=== PATIENT | female | born 1995 | race Caucasian/White ===

== ENCOUNTER 2024-05-12 14:01 | Emergency (ER) | payer OTHER, SELFPAY ==
--- NOTE | ~2024-05-12 | US_ITS ---
EXAMINATION: US venous doppler LE RT DATE: 05/12/2024 15:25 INDICATION: Right lower extremity swelling with history of blood clots TECHNIQUE: Grayscale ultrasound images without and with compression and Doppler ultrasound images of the right lower extremity veins were obtained. COMPARISON: None. FINDINGS: The visualized portions of right common femoral vein, profunda (deep) femoral vein, femoral vein, pop liteal vein, peroneal veins, posterior tibial veins, and greater saphenous vein outflow are patent. IMPRESSION: 1. No deep venous thrombosis within the right lower extremity, as detailed above. Reviewed, dictated and finalized at location A. IMPRESSION: 1. No deep venous thrombosis within the right lower extremity, as detailed abo ve.
[2024-05-12 14:04] VITALS: BP 126/84; PULSE 81; RESP 16; TEMP 36.8; O2SAT 99
--- OUTSIDE RECORDS SUMMARY | 2024-05-12 15:07 | XMS_ITS | Referral Summary ---
Author Organization [facility] Address [address] [place] [address] Phone Care Team Providers Care Accounts Receivable Specialist Name Role Phone Anita Tian LAWYER PROBATE Primary Care Provider [phone] Allergies No known active allergies Medications butalbital-acet aminophen-caff (Fioricet, Esgic) 50-325-40 mg tablet Take 1 tablet by mouth if needed for headaches. Active acetaZOLAMIDE (Diamox) 250 mg tablet Take 1 tablet (250 mg total) by mouth 2 (two) times a day. 60 tablet 3 1 Active caffeine 200 mg Take 0.5 tablets (100 mg total) by mouth 2 (two) times a day. 30 tablet 1 1 Active Additional Information Patient not taking.Reported on 04/09/2020 topiramate (Topamax) 25 mg tablet Take 1 tablet (25 mg total) by mouth 2 (two) times a day. Goal dose is 75mg in AM and 50mg in PM, follow titration schedule given in clinic 150 tablet 5 1 Active amphetamine-dex troamphetamine XR (Adderall XR) 20 mg 24 hr capsule Take 20 mg by mouth 1 (one) time each day in the morning. Do not crush or chew. Active cyclobenzaprine (Flexeril) 10 mg tablet Take 1 tablet (10 mg total) by mouth 3 (three) times a day if needed for muscle spasms for up to 10 days. 30 tablet 4 Active Social History Tobacco Use Types Packs/Day Years Used Date Smoking Tobacco: Former Smokeless Tobacco: Never Alcohol Use Standard Drinks/Week Comments Yes 0 (1 standard drink = 0.6 oz pur e alcohol) AUDIT-C Answer Date Recorded Q1: How often do you have a drink containing alc ohol? Monthly or less 03/20/2020 Q2: How many drinks containi ng alcohol do you have on a typical day when you are drinking? 1 or 2 03/20/2020 Q3: How often do you have si x or more drinks on one occasion? 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03 02/09/2024 12:41 PM WINDOW SHADE CUTTER Plan of Treatment Not on file Insurance Care Teams Accounts Receivable Specialist Relationship Specialty Start Date End Date Anita Tian NP [address] [place] [address] PCP - General Family Medicine 11/02/21
--- OUTSIDE RECORDS SUMMARY | 2024-05-12 15:07 | XMS_ITS | Clinical Summary ---
Author Organization [facility] Address [address] Attn: Epic Prelude ADT ANDREY BARROSO [address] Care Team Providers Care Pulp Mill Supervisor Name Role Phone Unavailable Primary Care Provider Unavailabl e Allergies No known active allergies Medications ibuprofen (MOTRIN) 600 mg tablet Take by mouth. Active acetaZOLAMIDE (DIAMOX) 250 mg tablet Take 250 mg by mouth 2 times daily. 03/24/2020 Active oxycodone HCl,terephth/asp irin (OXYCODONE VSW-LVZXHEOJT-EP A ORAL) Take 5 mg by mouth. Active acyclovir (ZOVIRAX) 200 mg capsule 05/13/2022 Active amitriptyline (ELAVIL) 10 mg tablet Take 10 mg by mouth daily at bedtime. Active Cepacol Sore Throat, brendan-men, 15-2.6 mg Lozenge 06/09/2022 Active caffeine (VIVARIN) 200 mg tablet Take 100 mg by mouth 2 times daily. 03/28/2020 Active dextroamphetamin e-amphetamine (ADDERALL) 5 mg tablet 06/18/2022 Active levoFLOXacin (LEVAQUIN) 750 mg tablet 05/10/2022 Active omeprazole (PriLOSEC) 20 mg Capsule, Delayed Release(E.C.) 05/13/2022 Activ e ondansetron (ZOFRAN ODT) 4 mg Tablet, Rapid Dissolve 05/10/2022 Active SUMAtriptan (IMITREX) 25 mg tablet Take 25 mg by mouth. Active topiramate (TOPAMAX) 25 mg tablet Take 25 mg by mouth 2 times daily. 04/09/2020 Active valACYclovir (VALTREX) 1 gram tablet 05/10/2022 Active Active Problems No known active problems Encounters Date Type Department Care Team Description 04/21/2024 External Device Data [facility] ABSTRACTION Provider, Abstract 04/20/2024 External Device Data [facility]STRACTION Provider, Abstract 04/18/2024 External Device Data [facility]STRACTION Provider, Abstract 04/04/2024 External Device Data [facility]CTION Provider, Abstract 03/13/2024 External Device Data [facility]CTION Provider, Abstract 03/08/2024 External Device Data [facility] ABSTRACTION Provider, Abstract from Last 3 Months Family History Medical History Relation Name Comments Thyroid Disease Mother Relation Name Status Comments Mother Social History Tobacco Use Types Packs/Day Years Used Date Smoking Tobacco: Never Passive Smoke Exposure: Never Smokeless Tobacco: Never Tobacco Cessation:Counseling Given: Not Answered Comments No Sex and Gender Information Value Date Recorded Sex Assigned at Not on file Legal 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 Gender Identity Not on file Sexual Orientation Not on file Last Filed Vital Signs Vital Sign Reading Time Taken Comments Blood Pressure 122/88 07/28/2022 2:13 PM CDT Pulse 95 07/28/2022 2:13 PM CDT Temperature - - Respiratory Rate 18 07/28/2022 2:13 PM CDT Oxygen Saturation 99% 07/28/2022 2:13 PM CDT Inhaled Oxygen Concentration - - Weight 54.9 kg (121 lb) 09/30/2022 1:24 PM CDT Height 162.6 cm (5' 4 ) 09/30/2022 1:24 PM CDT Body Mass Index 20.77 09/30/2022 1:24 PM CDT Plan of Treatment Health Maintenance Due Date Last Done Comments DTAP/TDAP/TD VACCINES (1 - Tdap) 2012 HEPATITIS B VACCINES (1 of 3 - 19+ 3-dose series) 2012 PAP SMEAR 2014 CERVICAL CANCER SCREENING 08/13/2023 HPV/Cotest (30-65) 08/13/2023 PAP SMEAR 08/13/2023 INFLUENZA VACCINE (#1) 2023 HPV VACCINES Aged Out No longer eligi ble based on patient's age to complete this topic Insurance [facility] Address: [address] [place] [address]
--- OUTSIDE RECORDS SUMMARY | 2024-05-12 15:07 | XMS_ITS | Clinical Summary ---
Author Organization [facility] Address [address] [place] [address] Phone Care Team Providers Care Television Parts Tester Name Role Phone Unavailable Primary Care Provider Unavailabl e Medications No known medications Active Problems No known active problems Family History Medical History Relation Name Comments Thyroid Disease Mother Relation Name Status Comments Mother Social History Tobacco Use Types Packs/Day Years Used Date Smoking Tobacco: Never Comments Unknown Sex and Gender Information Value Date Recorded Sex Assigned at Not on file Legal Sex Female 2:07 PM CDT Gender Identity Not on file Sexual Orientation Not on file Last Filed Vital Signs Vital Sign Reading Time Taken Comments Blood Pressure 116/64 01/04/2020 1:56 PM CHICKEN VACCINATOR Pulse 80 01/04/2020 1:56 PM CHICKEN VACCINATOR Temperature - - Respiratory Rate - - Oxygen Saturation - - Inhaled Oxygen Concentration - - Weight 74.4 kg (164 lb) 01/04/2020 1:56 PM CHICKEN VACCINATOR Height 162.6 cm (5' 4 ) 01/04/2020 1:56 PM CHICKEN VACCINATOR Body Mass Index 28.15 01/04/2020 1:56 PM CHICKEN VACCINATOR Plan of Treatment Health Maintenance Due Date Last Done Comments DTAP/TDAP/TD VACCINES (1 - Tdap) 2012 HEPATITIS B VACCINES (1 of 3 - 19+ 3-dose series) 2012 PAP SMEAR 2014 CERVICAL CANCER SCREENING 08/13/2023 HPV/Cotest (30-65) 08/13/2023 PAP SMEAR 08/13/2023 INFLUENZA VACCINE (#1) 2023 HPV VACCINES Aged Out No longer eligi ble based on patient's age to complete this topic PNEUMOCOCCAL VACCINE 0-49 YEARS Aged Out No longer eligible based on patient's age to complete this topic
--- OUTSIDE RECORDS SUMMARY | 2024-05-12 15:07 | XMS_ITS | Clinical Summary ---
Author Organization [facility] Address [address] [place] [address] Phone Care Team Providers Care Vamp Creaser Name Role Phone Anita Tian [employer] Primary Care Provider [phone] Allergies No known active allergies Medications butalbital-acet [...] to 10 days. 30 tablet 4 Active Family History Medical History Relation Comments Hypertension Father No Known Problems Mother Relation Status Comments Father Alive Mother Alive Social History Tobacco Use Types Packs/Day Years [...] on file Legal Sex Female 8:47 AM SURVEILLANCE SPECIALIST Gender Identity Not on file Sexual Orientation Not on file Last Filed Vital Signs Vital Sign Reading Time Taken Comments Blood Pressure 113/74 02/09/2024 4:06 PM SURVEILLANCE SPECIALIST Pulse 52 02/09/2024 4:06 PM SURVEILLANCE SPECIALIST Temperature 37 C (98.6 F) 02/09/2024 12:41 PM SURVEILLANCE SPECIALIST Respiratory Rate 18 02/09/2024 4:06 PM SURVEILLANCE SPECIALIST Oxygen Saturation 96% 02/09/2024 4:06 PM SURVEILLANCE SPECIALIST Inhaled Oxygen Concentration - - Weight 59 kg (130 lb) 02/09/2024 12:41 PM SURVEILLANCE SPECIALIST Height 160 cm (5' 3 ) 02/09/2024 12:41 PM SURVEILLANCE SPECIALIST Body Mass Index 23.03 02/09/2024 12:41 PM SURVEILLANCE SPECIALIST Plan of Treatment Health Maintenance Due Date Last Done Comments MMR Vaccines (1 of 1 - Stand candelario series) 1994 DTaP,Tdap,and Td Vaccines (1 - Tdap) 2000 Varicella Vaccines (1 of 2 - 13+ 2-dose series) 2006 Hepatitis B Vaccines (1 of 3 - 19+ 3-dose series) 2012 Pap Smear 2014 Cervical Cancer Screening 08/13/2023 HPV/Cotest 08/13/2023 COVID-19 Vaccine ( - 2023-2 5 season) 2023 Influenza Vaccine (#1) 2023 Pneumococcal Vaccine: 50+ Ye ars (1 of 1 - PCV) 08/13/2043 Zoster Vaccines (1 of 2) 08/13/2043 RSV Vaccine 60+ or (1 - 1-dose 75+ series) 2068 HIB Vaccines Aged Out No longer eligi ble based on patient's age to complete this topic HPV Vaccines Aged Out No longer eligi ble based on patient's age to complete this topic Hepatitis A Vaccines Aged Out No long er eligible based on patient's age to complete this topic IPV Vaccines Aged Out No longer eligi ble based on patient's age to complete this topic Meningococcal B Vaccine Aged Out No l onger eligible based on patient's age to complete this topic Meningococcal Vaccine Aged Out No jose antonio miguel eligible based on patient's age to complete this topic Pneumococcal Vaccine Aged Out No long er eligible based on patient's age to complete this topic RSV Vaccine <20 Months Aged Out No lo nger eligible based on patient's age to complete this topic Rotavirus Vaccines Aged Out No longer eligible based on patient's age to complete this topic Insurance [facility] Care Teams Vamp Creaser Relationship Specialty Start Date End Date Anita Tian NP [address] [place] [address] [place] [address] PCP - General Family Medicine 11/02/21
--- NOTE | 2024-05-12 15:55 | ED.EXTPRO ---
HPI - Extremity Problem General Chief complaint: Extremity Problem,Nontraumatic Stated complaint: Right leg swollen/weak-Hx of blood clots Time Seen by Provider: 05/12/24 14:50 Source: patient Mode of arrival: ambulatory Limitations: no limitations History of Present Illness HPI Narrative: Patient is a 28-year-old female who presents the ED with report of right leg pain. Patient reports she 1st noticed some swelling in her right lower leg yesterday. States she began having increased pain throughout her lower leg extending into right medial thigh today. Took Tylenol prior to arrival without improvement. Is concerned for blood clots. Has history of blood clots several years ago, which was attributed to control and smoking. She is no longer on control, no longer smoking. Not currently on anticoagulation. No recent long distance travel. No chest pain or shortness of breath. Related Data Allergies Allergy/AdvReac Type Severity Reaction Status Date / Time No Known Allergies Allergy Verified 05/12/24 14:02 Review of Systems Review of Systems: All systems reviewed & are unremarkable except as noted in HPI. All systems reviewed & are unremarkable except as noted in HPI and below Exam Narrative: GENERAL: Well appearing, well-nourished, non-toxic, in no acute distress. HEAD: Normocephalic, atraumatic. RESPIRATORY: Airway patent, respirations nonlabored. CARDIOVASCULAR: Regular rate and rhythm. Pedal pulses intact and easily palpable. MUSCULOSKELETAL: Moves all extremities. No gross deformities. Tenderness to palpation throughout right medial calf, right distal thigh region. No appreciable swelling throughout right lower extremity. Sensation intact. No wounds or erythema. No significant tenderness throughout right knee joint. SKIN: Warm, dry, normal color. NEURO: A&O X3. Speech clear. Cranial nerves II-XII grossly intact. Steady gait. No ataxic movements. PSYCHIATRIC: Appropriate mood and affect. Normal interaction. Course Vital Signs Vital signs: Vital Signs Temperature 98.2 F 05/12/24 14:04 Pulse Rate 81 05/12/24 14:04 Respiratory Rate 16 05/12/24 14:04 Blood Pressure 126/84 05/12/24 14:04 Pulse Oximetry 99 05/12/24 14:04 Temperature 98.2 F 05/12/24 14:04 Pulse Rate 81 05/12/24 14:04 Respiratory Rate 16 05/12/24 14:04 Blood Pressure 126/84 05/12/24 14:04 Pulse Oximetry 99 05/12/24 14:04 MDM - Extremity (Nontraumatic) MDM Narrative Medical decision making narrative: Patient presented to ED with 2 day history of right lower extremity pain. Concerned for blood clots. History of DVT. No significant risk factors at this time. Vital signs are stable. No chest pain or shortness of breath. Exam is fairly unremarkable. Minimal tenderness. No signs of neurologic or vascular compromise on physical examination. Compartments are soft without signs of compartment syndrome. Ultrasound of right lower extremity negative for DVT. Pain is likely related to musculoskeletal etiology, muscular strain. Patient is felt to be stable for discharge home and further outpatient management and treatment. Offered Toradol here, but patient declined. Advised to continue Tylenol, ibuprofen, RICE therapy. Discussed return precautions. Discharged in stable condition. Medical Records Attestation: I reviewed the patient's medical records. Imaging Data Attestation: I personally reviewed and interpreted this imaging study as follows: Radiologist's impression: ITS Impressions Venous Doppler Study 05/12/24 15:32 IMPRESSION: 1. No deep venous thrombosis within the right lower extremity, as detailed above. Discharge Plan Discharge Clinical Impression: Pain of right lower extremity Patient Disposition: Home, Self-Care Condition: Stable Instructions: Antibiotic Form, Leg Sprain (ED), Muscle Cramp (ED) Additional Instructions: Your ultrasound here was negative for blood clots. Your pain is likely muscular. Continue Tylenol and ibuprofen as needed for pain. Recommend ice to areas of pain, elevate leg as needed. Follow-up with your primary care doctor for further evaluation as needed. Return to the ED if you experience worsening or severe pain or swelling, numbness, injury, or any other symptoms of concern. Patient Language: Vietnamese Follow-up/Referrals: PHYSICIAN NOT ON STAFF,NONSTAFF [Primary Care Provider] - Time of Disposition: 16:06
== END 2024-05-12 16:18 | disposition home or self-care (01) ==
PROVIDERS: Emergency Provider Physician Assistant
DX: M79.604 Pain in right leg (principal); Z87.891 Personal history of nicotine dependence; Z86.718 Personal history of other venous thrombosis and embolism
CPT/HCPCS: 93971; 99284; J1885